=== PATIENT | female | born 1985 | race Caucasian/White ===

== ENCOUNTER 2019-01-05 21:52 | Emergency (ER) | payer MEDICAID ==
[~2019-01-05] VITALS: Wt 100.5 kg
[2019-01-06] MEDS ORDERED: SOD CHLORIDE 0.9% 1,000 ML IV STA (03:26)
[2019-01-06] MEDS ORDERED: morphine 4 MG/ML VIAL IV STA (03:26)
--- NOTE | 2019-01-06 03:51 | ERD ---
ER Documentation Chief Complaint Chief Complaint bib self, cc: abd. pain, vag bleed x 7 weeks HPI 33-year-old female in her seventh week of presents with vaginal bleeding and abdominal pain since yesterday. States that she is gone through 3 pads since has been in the hospital. States she received an ultrasound about a week ago and which they said the baby was not growing the way it should. She does have an OB. Not taking any treatments. Denies fevers, nausea, vomiting, diarrhea, syncope, lightheadedness, palpitations. LMP was 11/02/2018 ROS All systems reviewed and are negative except as per history of present illness. Medications Home Meds Active Scripts Hydrocodone/Acetaminophen ([place] 5-325 Tablet) 1 Each Tablet, 1 TAB PO Q6H PRN for PAIN, #15 TAB Prov:KARINA RAMIRES 01/06/19 Allergies Allergies: Coded Allergies: No Known Allergy (Unverified , 07/17/14) PMhx/Soc Medical and Surgical Hx: pt denies Medical Hx, pt denies Surgical Hx Hx Alcohol Use: No Hx Substance Use: No Hx Tobacco Use: No Smoking Status: Never smoker FmHx Family History: No diabetes, No coronary disease, No other Physical Exam Vitals Vital Signs Date Temp Pulse Resp B/P (MAP) Pulse Ox O2 O2 Flow FiO2 Time Delivery Rate 01/06/19 75 16 102/52 97 Room Air 06:21 (69) 01/05/19 99.0 81 19 127/65 100 21:57 (85) Physical Exam Const: No acute distress Head: Atraumatic Eyes: Normal Conjunctiva ENT: Normal External Ears, Nose and Mouth. Neck: Full range of motion. No meningismus. Resp: Clear to auscultation bilaterally Cardio: Regular rate and rhythm, no murmurs Abd: Abdominal pain in the lower quadrants bilaterally. Negative Brown's. Skin: No petechiae or rashes Back: No midline or flank tenderness Ext: No cyanosis, or edema Neur: Awake and alert Psych: Normal Mood and Affect Result Diagram: 01/06/19 0340 Results 24 hrs Laboratory Tests Test 01/06/19 03:40 White Blood Count 5.9 10^3/ul Red Blood Count 4.30 10^6/ul Hemoglobin 12.5 g/dl Hematocrit 37.8 % Mean Corpuscular Volume 87.9 fl Mean Corpuscular Hemoglobin 29.1 pg Mean Corpuscular Hemoglobin Concent 33.1 g/dl Red Cell Distribution Width 13.5 % Platelet Count 300 10^3/UL Mean Platelet Volume 10.4 fl Immature Granulocytes % 0.300 % Neutrophils % 46.8 % Lymphocytes % 44.9 % Monocytes % 6.0 % Eosinophils % 1.5 % Basophils % 0.5 % Nucleated Red Blood Cells % 0.0 /100WBC Immature Granulocytes # 0.020 10^3/ul Neutrophils # 2.8 10^3/ul Lymphocytes # 2.6 10^3/ul Monocytes # 0.4 10^3/ul Eosinophils # 0.1 10^3/ul Basophils # 0.0 10^3/ul Nucleated Red Blood Cells # 0.0 10^3/ul Urine Color TOMMIE Urine Clarity CLOUDY Urine pH 5.0 Urine Specific [place] 1.027 Urine Ketones NEGATIVE mg/dL Urine Nitrite NEGATIVE mg/dL Urine Bilirubin NEGATIVE mg/dL Urine Urobilinogen NEGATIVE mg/dL Urine Leukocyte Esterase NEGATIVE Ruiz/ul Urine Microscopic RBC > 182 /HPF Urine Microscopic WBC 24 /HPF Urine Bacteria FEW /HPF Urine Mucus MANY /HPF Urine Yeast (Budding) FEW /HPF Urine Hemoglobin 3+ mg/dL Urine Glucose NEGATIVE mg/dL Urine Total Protein 2+ mg/dl Beta HCG, Quantitative 1580.1 mIU/ml Current Medications Medications Dose Sig/Brittany Start Time Status Last (Trade) Ordered Route PRN Stop Time Admin Dose Reason Admin Sodium 1,000 ml @ Q1H STAT 01/06/19 DC 01/06/19 Chloride 1,000 mls/hr IV 03:26 03:59 01/06/19 04:25 Morphine 2 mg ONCE STAT 01/06/19 DC 01/06/19 Sulfate IV 03:26 04:26 (morphine) 01/06/19 03:28 Procedures/MDM DIAGNOSTIC IMAGING REPORT Patient: KATE MESSINA : 1985 Age: 33 Sex: F MR #: [id number] DOS: 01/06/19 0326 Ordering MD: KARINA RAMIRES Location: [facility] Room/Bed: PROCEDURE: US OB including transvaginal scanning. Pelvic Doppler study. CLINICAL INDICATION: Vaginal bleeding. patient. TECHNIQUE: Transabdominal and transvaginal views of the pelvis are available for review. Endovaginal scanning was needed to evaluate for intrauterine gestation. Color and pulsed wave Doppler exam was also performed. COMPARISON: No relevant priors. Prior OB ultrasound from 07/17/2014 FINDINGS: The uterus was unremarkable in appearance. The endometrial stripe appeared thickened, measuring 11 mm in thickness. No intrauterine gestational sac was seen. The right ovary measures 4 x 3 x 3.6 cm and contains a simple - appearing 2.9 cm cyst. Arterial flow was seen within the right ovary with peak systolic velocity of 16.8 cm/sec. The left ovary was not able to be seen. No free fluid was seen. IMPRESSION: No intrauterine gestational sac is seen. Simple - appearing right ovarian cyst. Non-visualized left ovary. Ectopic is not excluded. No free fluid. RPTAT: [facility]BE Physician Racquel Date Time Electronically viewed and signed by Hayley Parnell, Physician on 01/06/2019 04:53 LE/ CC: KARINA RAMIRES [id number] ER Course: CBC, UA, beta quant HCG, type and RH, vaginal US/abdominal US ordered. IV fluids and morphine given. MDM: 33-year-old female in her seventh week of presents with vaginal bleeding and abdominal pain since yesterday. States that she is gone through 3 pads since has been in the hospital. States she received an ultrasoun d about a week ago and which they said the baby was not growing the way it should. She does have an OB. Not taking any treatments. Denies fevers, nausea, vomiting, diarrhea, syncope, lightheadedness, palpitations. Labs were ordered and are within normal limits. Ultrasound was ordered and showed no intrauterine indicating completed . Pelvic exam were performed and there was some clots as well as possible POC's which were removed from the os. POC's were sent to pathology. Upon discharge patient's bleeding was controlled and patient exhibited no signs of shock or hemodynamic instability. Patient's pain was controlled in the ER at time of discharge as well. Patient given Rx for [place]. I discussed the case with Dr Chiu and he said patient was fit for discharge with 48 hour follow up. I have low suspicion for ectopic , symptomatic anemia, hypovolemic shock, septic , or other emergent condition. Patient advised to follow-up with her OB within 24 hours as well as return within 48 hours for repeat examination and ultrasound. Advised to return sooner than that if there is pain or continued bleeding. Departure Diagnosis: Primary Impression: Complete Condition: Stable KARINA RAMIRES Jan 06, 2019 03:51
[2019-01-06] MEDS ORDERED: HYDR-4011 PO (05:47)
[2019-01-06 06:21] VITALS: BP 102/52; PULSE 75; RESP 16
== END 2019-01-06 06:23 | disposition home or self-care (01) ==
LOC: FTE 21:52
DX: O03.9 Complete or unspecified spontaneous abortion without complication (principal)
CPT/HCPCS: 36415; 76801; 76817; 81001; 84702; 85025; 86900; 86901; 88305; 96374; J2270; J7030; Z7502

== ENCOUNTER 2019-01-08 09:50 | Emergency (ER) | payer MEDICAID ==
[~2019-01-08] VITALS: Ht 149.9 cm; Wt 100.8 kg
[~2019-01-08 09:50] MED LIST: HYDR-4011 PO
[2019-01-08 09:53] VITALS: BP 127/78; PULSE 68; RESP 17; Ht 149.9 cm; Wt 100.8 kg
--- NOTE | 2019-01-08 12:26 | ERD ---
ER Documentation Chief Complaint Chief Complaint needs US and Hcg levels checked HPI 33-year-old female presenting with request for hCG and ultrasound recheck. Patient states she started bleeding 3 days ago and passed clots. . LNMP November 02. Patient's last hCG level on 01/02/2019 was 2640. Denies medical problems. NKDA. Surgical history denies. Social history denies ROS All systems reviewed and are negative except as per history of present illness. Medications Home Meds Active Scripts Hydrocodone/Acetaminophen ([place] 5-325 Tablet) 1 Each Tablet, 1 TAB PO Q6H PRN for PAIN, #15 TAB Prov:KARINA RAMIRES 01/06/19 Allergies Allergies: Coded Allergies: No Known Allergy (Unverified , 01/08/19) PMhx/Soc Medical and Surgical Hx: pt denies Medical Hx, pt denies Surgical Hx Hx Alcohol Use: No Hx Substance Use: No Hx Tobacco Use: No Smoking Status: Never smoker FmHx Family History: No diabetes, No coronary disease, No other Physical Exam Vitals Vital Signs Date Temp Pulse Resp B/P (MAP) Pulse Ox O2 O2 Flow FiO2 Time Delivery Rate 01/08/19 97.6 68 17 127/78 96 09:53 (94) Physical Exam GENERAL: The patient is well-appearing, well-nourished, in no acute distress CHEST: Clear to auscultation bilaterally. There are no rales, wheezes or rhonchi. HEART: Regular rate and rhythm. No murmurs, clicks, rubs or gallops ABDOMEN:Soft, nontender and nondistended. Good bowel sounds. No rebound or gua rding. No gross peritonitis. No gross organomegaly or masses. Result Diagram: 01/08/19 1045 Results 24 hrs Laboratory Tests Test 01/08/19 10:42 01/08/19 10:45 Urine Color YELLOW Urine Clarity CLOUDY Urine pH 6.0 Urine Specific [place] 1.027 Urine Ketones NEGATIVE mg/dL Urine Nitrite NEGATIVE mg/dL Urine Bilirubin NEGATIVE mg/dL Urine Urobilinogen 1+ mg/dL Urine Leukocyte Esterase TRACE Ruiz/ul Urine Microscopic RBC > 182 /HPF Urine Microscopic WBC 25 /HPF Urine Squamous Epithelial Cells FEW /HPF Urine Mucus FEW /HPF Urine Hemoglobin 3+ mg/dL Urine Glucose NEGATIVE mg/dL Urine Total Protein 1+ mg/dl White Blood Count 4.6 10^3/ul Red Blood Count 3.99 10^6/ul Hemoglobin 11.6 g/dl Hematocrit 35.3 % Mean Corpuscular Volume 88.5 fl Mean Corpuscular Hemoglobin 29.1 pg Mean Corpuscular Hemoglobin Concent 32.9 g/dl Red Cell Distribution Width 13.2 % Platelet Count 275 10^3/UL Mean Platelet Volume 10.1 fl Immature Granulocytes % 0.200 % Neutrophils % 47.5 % Lymphocytes % 42.5 % Monocytes % 6.8 % Eosinophils % 2.6 % Basophils % 0.4 % Nucleated Red Blood Cells % 0.0 /100WBC Immature Granulocytes # 0.010 10^3/ul Neutrophils # 2.2 10^3/ul Lymphocytes # 2.0 10^3/ul Monocytes # 0.3 10^3/ul Eosinophils # 0.1 10^3/ul Basophils # 0.0 10^3/ul Nucleated Red Blood Cells # 0.0 10^3/ul Beta HCG, Quantitative 186.2 mIU/ml Procedures/MDM DIAGNOSTIC IMAGING REPORT Patient: KATE MESSINA : 1985 Age: 33 Sex: F MR #: [id number] DOS: 01/08/19 1017 Ordering MD: SIMIN BROUSSARD PA-C Location: [facility] Room/Bed: PROCEDURE: US OB. CLINICAL INDICATION: Vaginal bleeding. TECHNIQUE: Transabdominal and transvaginal sonographic evaluation of the uterus was performed. COMPARISON: Obstetrical sonogram dated 01/06/2019. FINDINGS: Uterus is anteverted and measures 9.6 x 4.6 x 5.1 cm. No intrauterine gestational sac is seen. Endometrium measures 11 mm in thickness, unchanged. Right ovary measures 3.8 x 2.2 x 2.8 cm. Left ovary measures 3 x 1.8 x 1.9 cm. There is a 2.3 cm right ovarian cyst, previously measured 3.1 cm. Normal vascular waveforms were sampled from both ovaries. No suspicious adnexal masses are seen. There is no free pelvic fluid. IMPRESSION: 1. No visible intrauterine or ectopic . of unknown location. Recommend close follow-up with serial Beta HCG measurements and repeat pelvic sonogram in 7 days to exclude ectopic . 2. Small right ovarian cyst, decreased in size. 3. Unremarkable left ovary. 4. No free pelvic fluid. MDM: 33-year-old female presenting with vaginal bleeding. Patient's ultrasound shows signs of miscarriage. Hemoglobin is stable. Beta hCG level is dropping. Patient denies any abdominal pain. I have considered ectopic however of low suspicion as beta-hCG level is decreasing. Patient is undergoing miscarriage. I have low suspicion for other acute abdominal or pelvic abnormalities. Patient is discharged stricter precautions. All questions answered at discharge Departure Diagnosis: Primary Impression: Miscarriage Condition: Stable Patient Instructions: Miscarriage (Incomplete) Referrals: [facility] YOU HAVE RECEIVED A MEDICAL SCREENING EXAM AND THE RESULTS INDICATE THAT YOU DO NOT HAVE A CONDITION THAT REQUIRES URGENT TREATMENT IN THE EMERGENCY DEPARTMENT. FURTHER EVALUATION AND TREATMENT OF YOUR CONDITION CAN WAIT UNTIL YOU ARE SEEN IN YOUR DOCTORS OFFICE WITHIN THE NEXT 1-2 DAYS. IT IS YOUR RESPONSIBILITY TO MAKE AN APPOINTMENT FOR FOLOW-UP CARE. IF YOU HAVE A PRIMARY DOCTOR --you should call your primary doctor and schedule an appointment IF YOU DO NOT HAVE A PRIMARY DOCTOR YOU CAN CALL OUR PHYSICIAN REFERRAL HOTLINE AT IF YOU CAN NOT AFFORD TO SEE A PHYSICIAN YOU CAN CHOSE FROM THE FOLLOWING [facility] [address] [facility]. [facility] [address] [facility] [facility] [address] [facility] [address] [facility]. [facility] [address] [facility]. [facility]. [address] [place] Additional Instructions: FOLLOW UP WITH YOUR PRIMARY CARE PHYSICIAN TOMORROW.Return to this facility if you are not improving as expected. PATRICIA BROUSSARD PA-C Jan 08, 2019 12:26
== END 2019-01-08 12:27 | disposition home or self-care (01) ==
LOC: FTE 09:50
DX: O20.0 Threatened abortion (principal); Z3A.00 Weeks of gestation of pregnancy not specified
CPT/HCPCS: 76801; 76817; 81001; 84702; 85025; Z7502